=== PATIENT | male | born 1975 | race Caucasian/White ===

== ENCOUNTER 2018-11-13 00:08 | Emergency (ER) | payer MEDICARE, OTHER ==
[~2018-11-13] VITALS: Ht 182.9 cm; Wt 89.8 kg
--- NOTE | 2018-11-13 00:17 | ED General ---
General Chief Complaint: Neurological Problems Stated Complaint: LT SIDE WEAKNESS; NECK PAIN History of Present Illness Date Seen by Provider: Nov 13, 2018 Time Seen by Provider: 00:17 Initial Comments Patient is a 43-year-old male with history of hypertension who presents to the emergency department today complaining of left-sided facial droop and left eye irritation. He had onset of symptoms around 1:00 this afternoon. He did not have any other focal neurologic complaints. No weakness. He does complain of diffuse left-sided headache which is sometimes occipital. No nausea or vomiting. No chest pain or shortness of breath. No numbness or tingling. No loss of bowel or bladder. No difficulty speaking or with word finding. Allergies and Home Medications Allergies Coded Allergies: No Known Drug Allergies (Unverified , 11/13/18) Home Medications Azithromycin 250 Mg Tablet, 250 MG PO DAILY Prescribed by: SHANE PLASCENCIA on 11/13/1848 Dextran 70/Hypromellose/Pf 1 Each Droperette, 1 EACH OS UD Use 1 drop in the left eye several times hourly as needed to keep eye lubricated. Dispense one bottle with 1 refill. Prescribed by: SHANE PLASCENCIA on 11/13/18 010 Mineral Oil/Petrolatum,White 3.5 Gm Oint...g., 3.[address] a small ribbon of ointment in the left eye before bed each night Prescribed by: SHANE PLASCENCIA on 11/13/1848 Prednisone 20 Mg Tab, 60 MG PO DAILY Prescribed by: SHANE PLASCENCIA on 11/13/1848 Valacyclovir HCl 1,000 Mg Tablet, 1,000 MG PO TID Prescribed by: SHANE PLASCENCIA on 11/13/1848 Patient Home Medication List Home Medication List Reviewed: Yes Review of Systems Review of Systems Constitutional: no symptoms reported EENTM: see HPI, eye pain, tearing Respiratory: no symptoms reported Cardiovascular: no symptoms reported Musculoskeletal: no symptoms reported Skin: no symptoms reported Hematologic/Lymphatic: No Symptoms Reported Physical Exam Vital Signs Vital Signs - First Documented 11/13/18 00:18 Temp 97.5 Pulse 78 Resp 18 B/P (MAP) 160/106 (124) Pulse Ox 98 O2 Delivery Room Air Capillary Refill : Height, Weight, BMI Height: '" Weight: lbs. oz. kg; BMI Method: General Appearance: No Apparent Distress, WD/WN Eyes: Bilateral Eye Normal Inspection, Bilateral Eye PERRL, Bilateral Eye EOMI HEENT: PERRL/EOMI, Other (TMs are dull bilaterally. The left is red. The right is dark [place] val[place] with effusion present. Left conjunctiva is mildly injected and eyes watering) Neck: Full Range of Motion, Supple Respiratory: Lungs Clear, Normal Breath Sounds Cardiovascular: Regular Rate, Rhythm, No Edema Gastrointestinal: Non Tender, Soft Extremity: Normal Capillary Refill, Normal Inspection, Normal Range of Motion Neurologic/Psychiatric: Alert, Oriented x3, No Motor/Sensory Deficits, Normal Mood/Affect, Facial Droop, Other (isolated seventh cranial nerve palsy is present on the left. The forehead is involved. Patient cannot fully close left eyelid. Coronary left mouth is drooping.) Progress/Results/Core Measures Suspected Sepsis SIRS Temperature: Pulse: Respiratory Rate: Blood Pressure / Mean: Results/Orders My Orders Orders - SHANE PLASCENCIA DO Ct Head Wo (11/13/18 00:18) Prednisone Tablet (Deltasone Tablet) (11/13/18 00:45) Azithromycin Tablet (Zithromax Tablet) (11/13/18 01:00) Medications Given in ED Current Medications Medications Dose Ordered Sig/Giovani Route Start Time Stop Time Status Last Admin Dose Admin Azithromycin 500 mg ONCE ONCE PO 11/13/18 01:00 11/13/18 01:01 DC 11/13/18 00:55 500 MG Prednisone 50 mg ONCE ONCE PO 11/13/18 00:45 11/13/18 00:46 DC 11/13/18 00:58 50 MG Vital Signs/I&O 11/13/18 00:18 Temp 97.5 Pulse 78 Resp 18 B/P (MAP) 160/106 (124) Pulse Ox 98 O2 Delivery Room Air Capillary Refill : Progress Note : Time: 00:57 Progress Note Patient is examined. He has physical exam consistent with Inman's palsy. No other findings on complete neurologic examination. CT head is ordered. We will begin prednisone this evening in the ER. Patient also endorses that he was recently struggling with an upper respiratory and sinus infection which he perceives to have been improving over the last 24 hours. On physical exam, his ear, particularly on the right, appear to have effusion and possibly purulent. He is started on azithromycin in the ER as well and will be given a prescription for the same to take at home. 01:10: CT scan has returned and is negative. She was reexamined. He continues to have no physical exam findings concerning for a central lesion. Rather, his exam reveals peripheral lesion isolated to cranial nerve VII. In the ER, he was started on azithromycin for treatment of sinus infection. Unfortunately artificial tears or acyclovir or valacyclovir is not available so the patient is given a prescription for these. He is discharged to home. He is strongly encouraged to keep his eye taped closed and to use eye lubricants frequently. He will fill his medication prescriptions at the [place] pharmacy when available. Follow-up with primary care doctor. Departure Impression Primary Impression: Inman's palsy Disposition: HOME, SELF-CARE Condition: Improved Departure-Patient Inst. Referrals: NO,LOCAL PHYSICIAN (PCP/Family) Primary Care Physician Scripts Dextran 70/Hypromellose/Pf (Artificial Tears Drops) 1 Each Droperette 1 EACH OS UD, #1 DROP 1 Refill Use 1 drop in the left eye several times hourly as needed to keep eye lubricated. Dispense one bottle with 1 refill. Prov: SHANE PLASCENCIA DO 11/13/18 Mineral Oil/Petrolatum,White (Refresh Lacri-Lube Ointment) 3.5 Gm Oint...g. 3.5 GM OS UD, #[address] a small ribbon of ointment in the left eye before bed each night Prov: SHANE PLASCENCIA DO 11/13/18 Azithromycin (Azithromycin) 250 Mg Tablet 250 MG PO DAILY for 4 Days, #4 TAB Prov: SHANE PLASCENCIA DO 11/13/18 Prednisone (Prednisone) 20 Mg Tab 60 MG PO DAILY, #5 TAB 0 Refills Prov: SHANE PLASCENCIA DO 11/13/18 Valacyclovir HCl (Valtrex) 1,000 Mg Tablet 1000 MG PO TID for 7 Days, #21 TAB Prov: SHANE PLASCENCIA DO 11/13/18 SHANE PLASCENCIA DO Nov 13, 2018 00:17
[2018-11-13] MEDS ORDERED: VALACYCLOVIR 500 MG TAB (VALTREX) PO SCH (00:45)
[2018-11-13] MEDS ORDERED: predniSONE 20 MG TAB PO ONE (00:45)
[2018-11-13] MEDS ORDERED: ARTIFICAL TEARS 0.4 ML UNIT DOSE (REFRESH PLUS) OS PRN (00:45)
[2018-11-13] MEDS ORDERED: VALA10004 PO (00:49)
[2018-11-13] MEDS ORDERED: AZIT250T12 PO (00:49)
[2018-11-13] MEDS ORDERED: MINE3.5O2 OS (00:49)
[2018-11-13] MEDS ORDERED: PRD20T PO (00:49)
[2018-11-13] MEDS ORDERED: AZITHROMYCIN 250 MG TAB (ZITHROMAX) PO ONE (01:00)
[2018-11-13] MEDS ORDERED: DEXT1DRO8 OS (01:02)
[2018-11-13 01:10] VITALS: BP 145/91
--- NOTE | 2018-11-13 06:33 | Diagnostic Imaging Report ---
PROCEDURE: CT head without contrast. TECHNIQUE: Multiple contiguous axial images were obtained through the brain without the use of intravenous contrast. Auto Exposure Controls were utilized during the CT exam to meet ALARA standards for radiation dose reduction. INDICATION: Left sided facial drooping and left-sided neck pain. No priors. There is no intracranial hemorrhage, hydrocephalus, edema, mass or mass effect. The basilar cisterns are patent. No sulcal effacement. No loss of the del valle-white matter differentiations. No intracranial asymmetry found. Orbits, sinuses, and calvarium unremarkable. IMPRESSION: Normal CT head. Dictated by: Dictated on workstation # [id number]
== END 2018-11-13 01:10 | disposition home or self-care (01) ==
LOC: EDUNIT# 00:08 → ER FS 00:09
DX: G51.0 Bell's palsy (principal); I10 Essential (primary) hypertension
CPT/HCPCS: 70450

== ENCOUNTER 2018-11-15 14:15 | Emergency (ER) | payer OTHER ==
[~2018-11-15] VITALS: Ht 182.9 cm; Wt 89.8 kg
[~2018-11-15 14:15] MED LIST: AZIT250T12 PO; DEXT1DRO8 OS; MINE3.5O2 OS; PRD20T PO; VALA10004 PO
[2018-11-15 14:45] VITALS: BP 141/77
--- NOTE | 2018-11-15 14:45 | NUR ---
1420: Patient arrived to ED stating he has had left sided facial droop for 4 days, states he was seen in the ED here and diagnosed with Inman's Palsy. He states the pain in his head and neck have worsened, his facial droop has worsened, and he has new symptoms of left leg weakness, left foot numbness/tingling, and blurred/double vision that started at 1100 this morning. Patient agitated and terse with staff, asking why blood and urine tests are necessary to diagnose his condition and treat him. 1425: Dr. Schulz in room to examine patient. 1445: Dr. Schulz explained treatment/diagnostic options to patient, patient pulled off cardiac leads, pulse oximetry, and blood pressure cuff and walked out of the ED against medical advice.
--- NOTE | 2018-11-15 15:03 | ED Headache ---
General Chief Complaint: Head/Cervical Problems Stated Complaint: FACIAL DROOP; NECK PAIN Source: patient History of Present Illness Date Seen by Provider: Nov 15, 2018 Time Seen by Provider: 14:30 Initial Comments Patient is a 43-year-old male presents with multiple medical complaints. Patient was evaluated in this emergency Department week ago and diagnosed with left facial droop characteristic of bells palsy. Patient states he was unable to fill any of his medications due to lack of finances. Reports blurred vision, temporal headache radiating to left shoulder worse with palpation and movement. Patient a lso reports chronic back pain and left lower extremity weakness and paresthesias below the level of the knee which are new today. Patient attempted to see his primary care physician at the [place] and was scheduled for an appointment in one week. He states he took Tylenol prior to the arrival for the headache and neck pain but nothing has worked. Denies urinary and bowel incontinence. Denies acute worsening back pain. Headache is left retro-orbital is described as sharp. It is not worse headache in the patient's life. Timing/Duration: 4-6 hours Severity/Quality: moderate Location: frontal Prior Headaches/Recent Trauma: occasional headaches Modifying Factors: improves with other Associated Symptoms: weakness Allergies and Home Medications Allergies Coded Allergies: No Known Drug Allergies (Unverified , 11/13/18) Home Medications Azithromycin 250 Mg Tablet, 250 MG PO DAILY Prescribed by: SHANE PLASCENCIA on 11/13/1848 Dextran 70/Hypromellose/Pf 1 Each Droperette, 1 EACH OS UD Use 1 drop in the left eye several times hourly as needed to keep eye lubricated. Dispense one bottle with 1 refill. Prescribed by: SHANE PLASCENCIA on 11/13/18101 Mineral Oil/Petrolatum,White 3.5 Gm Oint...g., 3.[address] a small ribbon of ointment in the left eye before bed each night Prescribed by: SHANE PLASCENCIA on 11/13/1848 Prednisone 20 Mg Tab, 60 MG PO DAILY Prescribed by: SHANE PLASCENCIA on 11/13/1848 Valacyclovir HCl 1,000 Mg Tablet, 1,000 MG PO TID Prescribed by: SHANE PLASCENCIA on 11/13/1848 Patient Home Medication List Home Medication List Reviewed: Yes Review of Systems Review of Systems Constitutional: see HPI Eyes: See HPI Ears, Nose, Mouth, Throat: see HPI Respiratory: see HPI Cardiovascular: see HPI Gastrointestinal: see HPI Genitourinary: see HPI Musculoskeletal: see HPI Skin: see HPI Psychiatric/Neurological: See HPI Past Astutyu-Dktxhj-Swvtga Hx Patient Social History Former Smoker, Quit: August 10, 2018 2nd Hand Smoke Exposure: No Recent Hopitalizations: No Past Medical History Surgeries: No Respiratory: No Cardiac: Yes High Cholesterol, Hypertension Neurological: No Genitourinary: No Gastrointestinal: No Musculoskeletal: No Endocrine: No HEENT: No Cancer: No Psychosocial: No Integumentary: No Blood Disorders: No Physical Exam Vital Signs Capillary Refill : Height, Weight, BMI Height: 6'0" Weight: 198lbs. oz. 89.614120dr; BMI Method:Stated General Appearance: no apparent distress HEENT: PERRL/EOMI, normal ENT inspection, pharynx normal, other (left facial droop with loss of blink reflex, forehead involvement without sparing) Cardiovascular: normal peripheral pulses, regular rate, rhythm Respiratory: chest non-tender, lungs clear Gastrointestinal: normal bowel sounds, soft Back: normal inspection, no CVA tenderness Extremities: non-tender Psychiatric: oriented x 3 Motor/Sensory: no sensory deficit, negative Babinski's sign, weak motor strength LLE Reflexes: 3+ Knee (R), 3+ Knee (L), 3+ Ankle (R), 3+ Ankle (L) Skin: normal color Departure Communication (Admissions) Patient exam consistent with Inman's palsy, left-sided headache which is new with cervical radiculopathy and left lower extremity paresthesia motor weakness. Patient has inconsistent neuro exam. Patient has decreased plantar and dorsiflexion is able to walk with out difficulty ataxia or foot drop. Discussed with patient the need for additional imaging including CT and/or MRI. Patient declines evaluation here states he just wants to have his neck treated. Patient for tramadol and Flexeril for treatment of neck pain. States he doesn't want that and that he could just get that from his primary care physician. Patient left abruptly without further morning. Ambulates with a steady gait on departure. Impression Primary Impression: Neck pain Additional Impressions: Inman's palsy Headache Left leg weakness Disposition: 01 HOME, SELF-CARE Condition: Stable Departure-Patient Inst. Referrals: NO,LOCAL PHYSICIAN (PCP/Family) Primary Care Physician OSCAR DEL VALLE DO Nov 15, 2018 15:03
== END 2018-11-15 14:45 | disposition left against medical advice (07) ==
LOC: EDUNIT# 14:15 → ER FS 14:17
DX: G51.0 Bell's palsy (principal); M54.2 Cervicalgia; R51 Headache; R29.898 Other symptoms and signs involving the musculoskeletal system; I10 Essential (primary) hypertension; E78.00 Pure hypercholesterolemia, unspecified; Z91.120 Patient's intentional underdosing of medication regimen due to financial hardship; Z87.891 Personal history of nicotine dependence
CPT/HCPCS: 99282

== ENCOUNTER 2019-09-21 20:29 | Emergency (ER) | payer OTHER ==
[~2019-09-21] VITALS: Ht 182.8 cm; Wt 83.6 kg
--- OUTSIDE RECORDS SUMMARY | 2019-09-21 20:35 | XMS REPORT | Continuity of Care Document ---
Author Organization Unknown Address Unknown Phone Unavailable Allergies Active Description Code Type Severity Reaction Onset Reported/Identified Relationship to Patient Clinical Status Yes No Known Drug Allergies [id number] Drug Allergy Unknown N/A 11/13/2018 Medications There is no data. 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 Results There is no data. Encounters ACCT No. Visit Date/Time Discharge Status Pt. Type Provider Facility Loc./Unit Complaint [id number] 12/02/2018 12:13:00 019 23:59:59 CLS Preadmit JOYCELYN BLEDSOE [facility] RAD NECK PAIN [id number] 11/15/2018 14:17:00 019 14:45:00 DIS Outpatient OSCAR DEL VALLE DO [facility] ER FS FACIAL DROOP; NECK PAIN [id number] 11/13/2018 00:09:00 019 01:10:00 DIS Outpatient SHANE PLASCENCIA DO [facility] ER FS LT SIDE WEAKNESS; NECK PAIN
[2019-09-21] MEDS ORDERED: HYDR-4132 PO (20:43)
[2019-09-21] MEDS ORDERED: CLIN150C17 PO (20:43)
[2019-09-21] MEDS ORDERED: CHLO473M4 MM (20:43)
[2019-09-21] MEDS ORDERED: AUGMENTIN 875 MG TAB (AMOXICILLIN/CLAVULANATE) PO STA (20:44)
[2019-09-21] MEDS ORDERED: HYDROcodone/APAP 5 MG/325 MG (LORTAB) TAB PO ONE (20:45)
--- NOTE | 2019-09-21 20:57 | ED General ---
General Chief Complaint: Dental Problems/Pain Stated Complaint: JAW SWELLING Nursing Triage Note: CHIN SWOLLEN AND IT STARTED LAST NIGHT. PT. HAS DENTAL PROBLEMS. Nursing Sepsis Screen: No Definite Risk Source of Information: Patient History of Present Illness Date Seen by Provider: Sep 21, 2019 Time Seen by Provider: 22:30 Initial Comments Patient is a 44-year-old male with history of widespread dental caries who presents with mandible swelling. Patient reports swelling of anterior chin starting yesterday. No dysphonia, dysphagia, trismus. No fever chills, sweats difficulty swallowing. No other symptoms or complaints. No medications or therapies taken prior to ED arrival. Timing/Duration: 12-24 Hours Severity: Mild Associated Systoms: Denies Symptoms Allergies and Home Medications Allergies Coded Allergies: No Known Drug Allergies (Unverified , 11/13/18) Home Medications Azithromycin 250 Mg Tablet, 250 MG PO DAILY Prescribed by: SHANE PLASCENCIA on 11/13/1848 Chlorhexidine Gluconate 473 Ml Mouthwash, 473 ML MM Q8H Prescribed by: OSCAR DEL VALLE on 09/21/192042 Clindamycin HCl 150 Mg Capsule, 300 MG PO QID Prescribed by: OSCAR DEL VALLE on 09/21/192042 Dextran 70/Hypromellose/Pf 1 Each Droperette, 1 EACH OS UD Use 1 drop in the left eye several times hourly as needed to keep eye lubricated. Dispense one bottle with 1 refill. Prescribed by: SHANE PLASCENCIA on 11/13/18101 Hydrocodone/Acetaminophen 1 Each Tablet, 1 EACH PO Q6H Prescribed by: OSCAR DEL VALLE on 09/21/192042 Mineral Oil/Petrolatum,White 3.5 Gm Oint...g., 3.[address] a small ribbon of ointment in the left eye before bed each night Prescribed by: SHANE PLASCENCIA on 11/13/1848 Prednisone 20 Mg Tab, 60 MG PO DAILY Prescribed by: SHANE PLASCENCIA on 11/13/1848 Valacyclovir HCl 1,000 Mg Tablet, 1,000 MG PO TID Prescribed by: SHANE PLASCENCIA on 11/13/1848 Patient Home Medication List Home Medication List Reviewed: Yes Review of Systems Review of Systems Constitutional: see HPI EENTM: see HPI Past Qdanfhm-Xpnszy-Yvbcns Hx Patient Social History Type Used: Cigarettes Former Smoker, Quit: August 10, 2018 2nd Hand Smoke Exposure: No Recent Foreign Travel: No Contact w/Someone Who Travel: No Recent Infectious Disease Expo: No Recent Hopitalizations: No Physical Abuse: No Sexual Abuse: No Mistreated: No Fear: No Seasonal Allergies Seasonal Allergies: No Past Medical History Surgeries: No Respiratory: No Cardiac: Yes High Cholesterol, Hypertension Neurological: No Genitourinary: No Gastrointestinal: No Musculoskeletal: Yes (T7-T10 fracture) Endocrine: No HEENT: No Cancer: No Psychosocial: No Integumentary: No Blood Disorders: No Physical Exam Vital Signs Vital Signs - First Documented 09/21/19 20:34 Temp 36.5 Pulse 89 Resp 18 B/P (MAP) 158/100 (119) Pulse Ox 98 O2 Delivery Room Air Capillary Refill : Less Than 3 Seconds Height, Weight, BMI Height: 6'0" Weight: 198lbs. oz. 89.231567cu; 25.00 BMI Method:Stated General Appearance: No Apparent Distress Eyes: Bilateral Eye Normal Inspection, Bilateral Eye PERRL HEENT: PERRL/EOMI, Pharynx Normal, Other (widespread dental caries with gingival swelling, and erosions. anterior chin swelling without erythema or fluctuance.) Neck: Full Range of Motion, Normal Inspection, Supple Respiratory: Lungs Clear Focused Exam Sepsis Stage: Ruled Out Progress/Results/Core Measures Suspected Sepsis Recent Fever Within 48 Hours: No Infection Criteria Present: None New/Unexplained Altered Menta: No Sepsis Screen: No Definite Risk SIRS Temperature: Pulse: 89 Respiratory Rate: 18 Blood Pressure 158 /100 Mean: 119 Results/Orders My Orders Orders - OSCAR DEL VALLE DO Amoxicillin/Clavulanate Tablet (Augmenti (09/21/19 20:44) Hydrocodone/Apap 5/325 Tablet (Lortab 5 (09/21/19 20:45) Vital Signs/I&O 09/21/19 20:34 Temp 36.5 Pulse 89 Resp 18 B/P (MAP) 158/100 (119) Pulse Ox 98 O2 Delivery Room Air Capillary Refill : Less Than 3 Seconds Blood Pressure Mean: 119 Departure Communication (Admissions) Early facial soft tissue abscess with caries and gingivitis. Abx given. Recommend are for close PCP follow up. Impression Primary Impression: Dental caries Disposition: 01 HOME, SELF-CARE Condition: Stable/Unchanged Departure-Patient Inst. Referrals: NO,LOCAL PHYSICIAN (PCP) Primary Care Physician Patient Instructions: Gingivitis (DC), Dental Pain (DC) Add. Discharge Instructions: Please fill antibiotics and take next dose tomorrow morning. Take ibuprofen for pain and hydrocodone as needed for additional relief. Contact your dentist or dental clinic tomorrow for follow up HORTENCIA. All discharge instructions reviewed with patient and/or family. Voiced understanding. Scripts Chlorhexidine Gluconate (Peridex) 473 Ml Mouthwash 473 ML MM Q8H for 10 Days, #120 ML Prov: OSCAR DEL VALLE DO 09/21/19 Hydrocodone/Acetaminophen (Hydrocodone-Acetamin 5-300 mg) 1 Each Tablet 1 EACH PO Q6H, #10 TAB Prov: OSCAR DEL VALLE DO 09/21/19 Clindamycin HCl (Clindamycin HCl) 150 Mg Capsule 300 MG PO QID, #80 CAP Prov: OSCAR DEL VALLE DO 09/21/19 OSCAR DEL VALLE DO Sep 21, 2019 20:56
[2019-09-21 21:03] VITALS: BP 158/100
== END 2019-09-21 21:09 | disposition home or self-care (01) ==
LOC: EDUNIT# 20:29 → ER FS 20:30
DX: K02.9 Dental caries, unspecified (principal); I10 Essential (primary) hypertension; Z79.52 Long term (current) use of systemic steroids; Z87.891 Personal history of nicotine dependence
CPT/HCPCS: 99283

== ENCOUNTER 2019-09-23 22:06 | Emergency (ER) | payer OTHER ==
[~2019-09-23] VITALS: Ht 182.8 cm; Wt 197.0 kg
[~2019-09-23 22:06] MED LIST changes: +CHLO473M4 MM; +CLIN150C17 PO; +HYDR-4132 PO
--- NOTE | 2019-09-23 22:23 | ED Integumentary General ---
General Chief Complaint: Skin/Wound Problems Stated Complaint: DENTAL PAIN Source: patient Exam Limitations: no limitations History of Present Illness Date Seen by Provider: Sep 23, 2019 Time Seen by Provider: 22:15 Initial Comments The patient is a 44-year-old male presents for evaluation of a chin infection which is been present for 2-3 days. He was seen in this emergency department 2 days ago and was prescribed Augmentin and [place]. He states that the swelling is getting worse and is getting more painful. He states that he is already out of his pain medication. He has no other complaints at this time. Timing/Duration: other (3 days ago) Severity: moderate Location: face Possible Cause: no cause identified Associated Symptoms: denies symptoms Allergies and Home Medications Allergies Coded Allergies: No Known Drug Allergies (Unverified , 11/13/18) Home Medications Azithromycin 250 Mg Tablet, 250 MG PO DAILY Prescribed by: SHANE PLASCENCIA on 11/13/1848 Chlorhexidine Gluconate 473 Ml Mouthwash, 473 ML MM Q8H Prescribed by: OSCAR DEL VALLE on 09/21/192042 Clindamycin HCl 150 Mg Capsule, 300 MG PO QID Prescribed by: OSCAR DEL VALLE on 09/21/192042 Dextran 70/Hypromellose/Pf 1 Each Droperette, 1 EACH OS UD Use 1 drop in the left eye several times hourly as needed to keep eye lubricated. Dispense one bottle with 1 refill. Prescribed by: SHANE PLASCENCIA on 11/13/18101 Hydrocodone/Acetaminophen 1 Each Tablet, 1 EACH PO Q6H Prescribed by: OSCAR DEL VALLE on 09/21/192042 Mineral Oil/Petrolatum,White 3.5 Gm Oint...g., 3.[address] a small ribbon of ointment in the left eye before bed each night Prescribed by: SHANE PLASCENCIA on 11/13/1848 Prednisone 20 Mg Tab, 60 MG PO DAILY Prescribed by: SHANE PLASCENCIA on 11/13/1848 Valacyclovir HCl 1,000 Mg Tablet, 1,000 MG PO TID Prescribed by: SHANE PLASCENCIA on 11/13/1848 Patient Home Medication List Home Medication List Reviewed: Yes Review of Systems Review of Systems Constitutional: no symptoms reported EENTM: no symptoms reported Respiratory: no symptoms reported Cardiovascular: no symptoms reported Gastrointestinal: no symptoms reported Genitourinary: no symptoms reported Musculoskeletal: no symptoms reported Skin: no symptoms reported Psychiatric/Neurological: No Symptoms Reported Endocrine: No Symptoms Reported Hematologic/Lymphatic: No Symptoms Reported All Other Systems Reviewed Negative Unless Noted: Yes Past Nvyzyhb-Zyixqv-Qfwglh Hx Past Med/Social Hx: Reviewed Nursing Past Med/Soc Hx Patient Social History Type Used: Cigarettes Former Smoker, Quit: August 10, 2018 2nd Hand Smoke Exposure: No Recent Foreign Travel: No Contact w/Someone Who Travel: No Recent Hopitalizations: No Physical Abuse: No Sexual Abuse: No Mistreated: No Fear: No Seasonal Allergies Seasonal Allergies: No Past Medical History Surgeries: No Respiratory: No Cardiac: Yes High Cholesterol, Hypertension Neurological: No Genitourinary: No Gastrointestinal: No Musculoskeletal: Yes (T7-T10 fracture) Endocrine: No HEENT: No Cancer: No Psychosocial: No Integumentary: No Blood Disorders: No Physical Exam Vital Signs Capillary Refill : General Appearance: WD/WN, no apparent distress HEENT: PERRL/EOMI, pharynx normal, other (swelling without fluctuance to the chin consistent with cellulitis) Neck: non-tender, supple, normal inspection Cardiovascular: regular rate, rhythm, no edema Respiratory: lungs clear, normal breath sounds, no accessory muscle use Extremities: normal range of motion, normal inspection, no calf tenderness, other (some fingers of left hand with partial limitations) Neurologic/Psychiatric: no motor/sensory deficits, alert, normal mood/affect, oriented x 3 Skin: warm/dry, other (chin with erythema consistent with cellulitis) Progress/Results/Core Measures Progress Progress Note : Progress Note @2220 - The patient had previously been prescribed Augmentin and will add Bactrim to provide additional coverage. The patient will also receive additional pain medication. Advised the patient to follow-up with his PCP in the next 1-2 days and to return to the Emergency Department immediately for new or worsening symptoms. The patient expresses verbal understanding and agreement with the plan and is stable for discharge. Departure Impression Primary Impression: Cellulitis of chin Disposition: 01 HOME, SELF-CARE Condition: Stable Departure-Patient Inst. Decision time for Depature: 22:22 Referrals: NO,LOCAL PHYSICIAN (PCP) Primary Care Physician [facility] Patient Instructions: Cellulitis (Skin Infection), Child (DC), Folliculitis (DC) Add. Discharge Instructions: Take the prescribed medication as directed. Return to the emergency Department immediately for new or worsening symptoms. Follow-up with your doctor the next 1-2 days. Scripts Hydrocodone Bit/Acetaminophen (HYDROcodone/APAP 7.5/325 TAB) 1 Ea Tablet 1 EA PO Q6H PRN for PAIN-SEVERE (8-10) for 5 Days, #15 TAB Prov: RADHA CEBALLOS DO 09/23/19 Cephalexin (Keflex) 500 Mg Capsule 500 MG PO Q6H for 10 Days, #40 CAP Prov: RADHA CEBALLOS DO 09/23/19 Sulfamethoxazole/Trimethoprim (Bactrim Ds Tablet) 1 Each Tablet 1 EACH PO BID for 10 Days, #20 TAB Prov: RADHA CEBALLOS DO 09/23/19 RADHA CEBALLOS DO Sep 23, 2019 22:22
[2019-09-23] MEDS ORDERED: CEPH-507 PO (22:25)
[2019-09-23] MEDS ORDERED: HYDR-34 PO (22:25)
[2019-09-23] MEDS ORDERED: SULF1TAB35 PO (22:25)
[2019-09-23] MEDS ORDERED: HYDROcodone/APAP 5 MG/325 MG (LORTAB) TAB PO ONE (22:30)
[2019-09-23] MEDS ORDERED: BACITRACIN OINTMENT 28 GM TUBE ONE (22:30)
[2019-09-23 22:40] VITALS: BP 158/118
--- OUTSIDE RECORDS SUMMARY | 2019-09-24 01:56 | XMS REPORT | Continuity of Care Document ---
Author Organization Unknown Address Unknown Phone Unavailable Allergies Active Description Code Type Severity Reaction Onset Reported/Identified Relationship to Patient Clinical Status Yes No Known Drug Allergies [id number] Drug Allergy Unknown N/A 11/13/2018 Medications There is no data. Problems Date Dx Coded Attending Type Code Diagnosis Diagnosed By 11/13/2018 SHANE PLASCENCIA DO Ot G51 .0 DE [place] 11/13/2018 SHANE PLASCENCIA DO Ot I10 ESSENTIAL (PRIMARY) HYPERTENSION 11/13/2018 SHANE PLASCENCIA DO Ot R29.810 FACIAL WEAKNESS 11/15/2018 PLASCENCIASHANE MINA DO Ot G51 .0 DE [place] 11/15/2018 SHANE PLASCENCIA DO Ot I10 ESSENTIAL (PRIMARY) HYPERTENSION 11/15/2018 PLASCENCIA SHANE VITAL Ot R29.810 FACIAL WEAKNESS 11/15/2018 [facility] [place] DO OSCAR Ot E78.00 PURE HYPERCHOLESTEROLEMIA, UNSPECIFIED 11/15/2018 [facility].0 DE [place] 11/15/2018 [place] OSCAR Ot I10 ESSENTIAL (PRIMARY) HYPERTENSION 11/15/2018 [place] OSCAR VITAL Ot M54.2 CERVICALGIA 11/15/2018 [facility] OSCAR Ot R29.810 FACIAL WEAKNESS 11/15/2018 [place] DO OSCAR Ot R29.898 OTH SYMPTOMS AND SIGNS INVOLVING THE MUS 11/15/2018 [facility], OSCAR Ot R51 HEADACHE 11/15/2018 [facility], OSCAR Ot Z87.891 PERSONAL HISTORY OF NICOTINE DEPENDENCE 11/15/2018 ELIGIO VITAL, OSCAR Ot Z91.120 PT INTENTL UNDRDOSE OF MEDS REGIMEN DUE 11/17/2018 OSCAR DEL VALLE DO Ot E78.00 PURE HYPERCHOLESTEROLEMIA, UNSPECIFIED 11/17/2018 [place] , OSCAR Ot G51.0 DE [place] 11/17/2018 ELIGIO , OSCAR Ot I10 ESSENTIAL (PRIMARY) HYPERTENSION 11/17/2018 [facility] OSCAR Ot M54.2 CERVICALGIA 11/17/2018 [place] DO, OSCAR Ot R29.810 FACIAL WEAKNESS 11/17/2018 OSCAR DEL VALLE DO Ot R29.898 OTH SYMPTOMS AND SIGNS INVOLVING THE MUS 11/17/2018 OSCAR DEL VALLE DO Ot R51 HEADACHE 11/17/2018 OSCAR DEL VALLE DO Ot Z87.891 PERSONAL HISTORY OF NICOTINE DEPENDENCE 11/17/2018 OSCAR DEL VALLE DO Ot Z91.120 PT INTENTL UNDRDOSE OF MEDS REGIMEN DUE Procedures There is no data. Results There is no data. Encounters ACCT No. Visit Date/Time Discharge Status Pt. Type Provider Facility Loc./Unit Complaint [id number] 09/23/2019 22:09:00 020 22:40:00 DIS Emergency TUCKER GARCIA DO [facility] ER FS DENTAL PAIN [id number] 09/21/2019 20:30:00 020 21:09:00 DIS Emergency OSCAR DEL VALLE DO [facility] ER FS JAW SWELLING [id number] 12/02/2018 12:13:00 019 23:59:59 CLS Preadmit JOYCELYN BLEDSOE [facility] RAD NECK PAIN [id number] 11/15/2018 14:17:00 019 14:45:00 DIS Emergency OSCAR DEL VALLE DO [facility] ER FS FACIAL DROOP; NECK PAIN [id number] 11/13/2018 00:09:00 019 01:10:00 DIS Emergency SHANE PLASCENCIA DO [facility] ER FS LT SIDE WEAKNESS; NECK PAIN
[2019-09-24] MEDS ORDERED: BACITRACIN OINTMENT 28 GM TUBE TOP SCH (09:00)
== END 2019-09-23 22:40 | disposition home or self-care (01) ==
LOC: EDUNIT# 22:06 → ER FS 22:09
DX: L03.211 Cellulitis of face (principal); Z79.52 Long term (current) use of systemic steroids; Z87.891 Personal history of nicotine dependence
CPT/HCPCS: 99283

== ENCOUNTER 2021-06-25 10:46 | Emergency (ER) | payer OTHER ==
[~2021-06-25] VITALS: Ht 182.8 cm; Wt 82.0 kg
[~2021-06-25 10:46] MED LIST changes: +CEPH-507 PO; -CLIN150C17 PO; +CLIN150C20 PO; +HYDR-34 PO; +SULF1TAB38 PO
[2021-06-25] MEDS ORDERED: CLINDAMYCIN 600 MG/50 ML IVPB 50 ML IV STA (11:07)
--- NOTE | 2021-06-25 11:29 | ED EENT ---
History of Present Illness General Chief Complaint: Dental Problems/Pain Stated Complaint: SOB History of Present Illness Date Seen by Provider: Jun 25, 2021 Time Seen by Provider: 10:59 Initial Comments 45-year-old male is here with complaints of extensive dental caries which has led to left-sided facial swelling and pain. Symptoms began a few days ago and has slowly been worsening, and when patient woke up today morning the swelling had spread to the entire left side of his face and into his eyelids as well as the left side of his forehead. Patient states that he is also starting to feel like his throat is starting to swell as well. He is concerned that he may be developing some shortness of breath. Patient is able to speak in complete and clear sentences without any evidence of respiratory distress during H&P. Denies fever, chills, nausea or vomiting, abdominal pain, URI symptoms. Patient states that he had similar symptoms about 5 to 6 years back, again due to dental infection, and was in the ICU and was intubated in [facility]. Patient is a smoker. Patient denies any allergies. Allergies and Home Medications Allergies Coded Allergies: No Known Drug Allergies (Unverified , 11/13/18) Patient Home Medication List Home Medication List Reviewed: Yes Azithromycin (Azithromycin) 250 Mg Tablet, 250 MG PO DAILY Prescribed by: SHANE PLASCENCIA on 11/13/18 004 Cephalexin (Keflex) 500 Mg Capsule, 500 MG PO Q6H Prescribed by: RADHA CEBALLOS on 09/23/192224 Chlorhexidine Gluconate (Peridex) 473 Ml Mouthwash, 473 ML MM Q8H Prescribed by: OSCAR DEL VALLE on 09/21/192042 Clindamycin HCl (Clindamycin HCl) 150 Mg Capsule, 300 MG PO QID Prescribed by: OSCAR DEL VALLE on 09/21/192042 Dextran 70/Hypromellose/Pf (Artificial Tears Drops) 1 Each Droperette, 1 EACH OS UD Prescribed by: SHANE PLASCENCIA on 11/13/18 010 Hydrocodone Bit/Acetaminophen (HYDROcodone/APAP 7.5/325 TAB) 1 Ea Tablet, 1 EA PO Q6H PRN for PAIN-SEVERE (8-10) Prescribed by: RADHA CEBALLOS on 09/23/19 222 Hydrocodone/Acetaminophen (Hydrocodone-Acetamin 5-300 mg) 1 Each Tablet, 1 EACH PO Q6H Prescribed by: OSCAR DEL VALLE on 09/21/192042 Mineral Oil/Petrolatum,White (Refresh Lacri-Lube Ointment) 3.5 Gm Oint...g., 3.5 GM OS UD Prescribed by: SHANE PLASCENCIA on 11/13/1848 Prednisone (Prednisone) 20 Mg Tab, 60 MG PO DAILY Prescribed by: SHANE PLASCENCIA on 11/13/1848 Sulfamethoxazole/Trimethoprim (Bactrim Ds Tablet) 1 Each Tablet, 1 EACH PO BID Prescribed by: RADHA CEBALLOS on 09/23/192224 Valacyclovir HCl (Valtrex) 1,000 Mg Tablet, 1,000 MG PO TID Prescribed by: SHANE PLASCENCIA on 11/13/1848 Review of Systems Review of Systems Constitutional: other (facial swelling) Eyes: Other (eyelid swelling) Ears: No Symptoms Reported Nose: no symptoms reported Mouth: pain, swelling Throat: swelling Respiratory: short of breath Cardiovascular: no symptoms reported Gastrointestinal: no symptoms reported Musculoskeletal: no symptoms reported Skin: no symptoms reported Neurological: No Symptoms Reported Hematologic/Lymphatic: No Symptoms Reported Immunological/Allergic: no symptoms reported Past Maomxdp-Ipvsrk-Wbzbbv Hx Patient Social History Tobacco Use?: Yes Tobacco type used: Cigarettes Smoking Status: Current Everyday Smoker Use of E-Cig and/or Vaping dev: No Substance use?: No Alcohol Use?: No Pt feels they are or have been: No Immunizations Up To Date Influenza Vaccine Up-to-Date: No; Not Current Seasonal Allergies Seasonal Allergies: No Past Medical History Surgery/Hospitalization HX: Cholecystectomy, back surgery 1994, left hand repair, T&A Surgeries: No Respiratory: No Cardiac: Yes High Cholesterol, Hypertension Neurological: No Genitourinary: No Gastrointestinal: No Musculoskeletal: Yes (T7-T10 fracture) Endocrine: No HEENT: No Cancer: No Psychosocial: No Integumentary: No Blood Disorders: No Physical Exam Vital Signs Vital Signs - First Documented 06/25/21 10:53 Temp 35.9 Pulse 88 Resp 16 B/P (MAP) 174/105 (128) 155/100 (118) Pulse Ox 99 O2 Delivery Room Air Height, Weight, BMI Height: 6'0" Weight: 198lbs. oz. 89.763502zc; 24.00 BMI Method:Stated General Appearance: no apparent distress Eyes: left eye lid inflammation; bilateral eye PERRL, bilateral eye EOMI Mouth/Throat: dental tenderness, uvula swelling, other (left sided facial swelling extending to left sided eyelids and left side of forehead. Pt has exten sive dental caries and gingivitis with every tooth in his mouth. Poor dental hygeine. ) Neck: non-tender, full range of motion, supple, lymphadenopathy (R), lymphadenopathy (L) Cardiovascular: normal peripheral pulses, regular rate, rhythm Respiratory: chest non-tender, lungs clear, normal breath sounds, no respirato ry distress, no accessory muscle use Neurologic/Psychiatric: breaster II-XII nml as tested, no motor/sensory deficits, alert, oriented x 3 Skin: normal color Progress/Results/Core Measures Results/Orders Lab Results Laboratory Tests Test 06/25/21 11:20 Range/Units White Blood Count 12.6 H 4.3-11.0 10^3/uL Red Blood Count 5.30 4.30-5.52 10^6/uL Hemoglobin 14.7 13.3-17.7 g/dL Hematocrit 44 40-54 % Mean Corpuscular Volume 84 80-99 fL Mean Corpuscular Hemoglobin 28 25-34 pg Mean Corpuscular Hemoglobin Concent 33 32-36 g/dL Red Cell Distribution Width 15.0 H 10.0-14.5 % Platelet Count 305 130-400 10^3/uL Mean Platelet Volume 10.4 9.0-12.2 fL Immature Granulocyte % (Auto) 0 % Neutrophils (%) (Auto) 65 42-75 % Lymphocytes (%) (Auto) 24 12-44 % Monocytes (%) (Auto) 7 0-12 % Eosinophils (%) (Auto) 3 0-10 % Basophils (%) (Auto) 1 0-10 % Neutrophils # (Auto) 8.2 H 1.8-7.8 10^3/uL Lymphocytes # (Auto) 3.1 1.0-4.0 10^3/uL Monocytes # (Auto) 0.9 0.0-1.0 10^3/uL Eosinophils # (Auto) 0.4 H 0.0-0.3 10^3/uL Basophils # (Auto) 0.1 0.0-0.1 10^3/uL Immature Granulocyte # (Auto) 0.0 0.0-0.1 10^3/uL Neutrophils % (Manual) 66 % Lymphocytes % (Manual) 21 % Monocytes % (Manual) 7 % Eosinophils % (Manual) 5 % Basophils % (Manual) 1 % Band Neutrophils 0 % Sodium Level 139 135-145 MMOL/L Potassium Level 4.4 3.6-5.0 MMOL/L Chloride Level 104 98-107 MMOL/L Carbon Dioxide Level 23 21-32 MMOL/L Anion Gap 12 5-14 MMOL/L Blood Urea Nitrogen 9 7-18 MG/DL Creatinine 0.98 0.60-1.30 MG/DL Estimat Glomerular Filtration Rate 96 BUN/Creatinine Ratio 9 Glucose Level 99 70-105 MG/DL Calcium Level 8.9 8.5-10.1 MG/DL Corrected Calcium 8.5 8.5-10.1 MG/DL Total Bilirubin 0.2 0.1-1.0 MG/DL Aspartate Amino Transf (AST/SGOT) 14 5-34 U/L Alanine Aminotransferase (ALT/SGPT) 8 0-55 U/L Alkaline Phosphatase 90 40-136 U/L Total Protein 8.1 6.4-8.2 GM/DL Albumin 4.5 3.2-4.5 GM/DL My Orders Orders - PEE RUBIO MD Cbc With Automated Diff (06/25/21 11:05) Comprehensive Metabolic Panel (06/25/21 11:05) Blood Culture (06/25/21 11:05) Dexamethasone Injection (Decadron Inje (06/25/21 11:05) Clindamycin 600 Mg/50 Ml Ivpb (Cleocin P (06/25/21 11:07) Blood Culture (06/25/21 11:30) Manual Differential (06/25/21 11:20) Ketorolac Injection (Toradol Injection) (06/25/21 11:58) Ct Neck (Soft Tissue) W (06/25/21 12:21) Ct Head/Maxillofacial Wo (06/25/21 12:21) Iohexol Injection (Omnipaque 350 Mg/Ml 1 (06/25/21 12:30) Received Contrast (Hold Metformin- Contr (06/25/21 12:30) Sodium Chloride Flush (Catheter Flush Sy (06/25/21 12:30) Ns (Ivpb) (Sodium Chloride 0.9% Ivpb Bag (06/25/21 12:30) Oxycodone/Apap 5/325mg Tablet (Percocet (06/25/21 13:15) Morphine Injection (Morphine Injection (06/25/21 14:15) Medications Given in ED Current Medications Medications Dose Ordered Sig/Giovani Route Start Time Stop Time Status Last Admin Dose Admin Iohexol 75 ml ONCE ONCE IV 06/25/21 12:30 06/25/21 12:31 DC 06/25/21 12:46 75 ML Oxycodone/ Acetaminophen 2 tab ONCE ONCE PO 06/25/21 13:15 06/25/21 13:16 DC 06/25/21 13:31 2 TAB Sodium Chloride 10 ml NEEDED PRN IV 06/25/21 12:30 06/25/21 12:46 10 ML Sodium Chloride 100 ml ONCE ONCE IV 06/25/21 12:30 06/25/21 12:31 DC 06/25/21 12:46 100 ML Vital Signs/I&O 06/25/21 06/25/21 10:53 13:55 Temp 35.9 Pulse 88 95 Resp 16 24 B/P (MAP) 174/105 (128) 157/102 155/100 (118) Pulse Ox 99 98 O2 Delivery Room Air Room Air Blood Pressure Mean: 118 Progress Progress Note : Progress Note 1. EXTENSIVE DENTAL CARIES/ DENTAL ABSCESS/ FACIAL CELLULITIS: - CT FACE AND NECK: 1st premolar apical abscess, and extensive dental caries - CBC/ CMP: Elevated WBC of 12.6 with a left shift - Blood culture taken - Dexa 10mg im STAT - Clinda 600mg iv STAT - Toradol 15mg iv STAT for pain which was not helping much for the pain. Then gave Percocet 2 tabs. Pt is demanding 5 Tylenol PM tablets or continuous Morphine drip, and states that nothing else works. Ordered Morphine 2mg iv STAT. - Vitals stable. - Pt is angry and yelling at us because we do not have a dentist in the ER. Pt states he has a right to a dentist in the ER. Pt has been unhappy, and shouting at his , and nursing staff and myself the entire time he has been in the ER. Pt is insistent that a dentist needs to be called to the ER to pull his tooth out. Multiple attempts at de-escalating the situation by all ER staff is unsuccessful. Multiple attempts at explaining and educating the pt has also remained unsuccessful. - Will transfer to [facility] for observation and dental consult. Diagnostic Imaging Diagonstic Imaging: CT Plain Films/CT/US/NM/MRI: facial bones, other (neck) Comments [facility] [place] [place] NAME: [facility] REC#: [id number] PT STATUS: REG ER : 1975 PHYSICIAN: PEE RUBIO MD ADMIT DATE: 06/25/21/ER FS Draft Date of Exam:06/25/21 CT HEAD/MAXILLOFACIAL WO PROCEDURE: CT head and maxillofacial without contrast. TECHNIQUE: Multiple contiguous axial images were obtained through the head and facial bones without the use of intravenous contrast. Auto Exposure Controls were utilized during the CT exam to meet ALARA standards for radiation dose reduction. INDICATION: Facial infection with dental cellulitis. COMPARISON: CT head from 11/13/2018. FINDINGS: Head: No intracranial hyperdense hemorrhage or space-occupying mass. No hydrocephalus or midline shift. Hoang-white matter differentiation is well-preserved. Basilar cisterns are widely patent. Paranasal sinuses and mastoid air cells are clear. Face: Multifocal dental caries is present. The left maxillary 1st premolar has a large periapical lucency measuring 11 x 11 mm that also causes erosions along the medial cortex of the hard palate. There is no invasion through the cranial cortex or hard palate and therefore no communication with the nasal cavity. Moderate soft tissue swelling involving the left buccal region and left kavon-face. No soft tissue abscess is present. No post-septal inflammatory change within the orbits. IMPRESSION: 1. Apical/periodontal abscess is present centered around the root of the left maxillary 1st premolar. There is destruction of portions of the hard palate. 2. Extensive potential caries involves the majority of the remainder of the teeth. 3. Left facial cellulitis secondary to the left maxillary dental infection. No soft tissue abscess is appreciated. Dictated on workstation # [id number] Dict: 06/25/21 1252 Trans: 06/25/21 1259 CV [id number] Interpreted by: OLLIE DEL ROSARIO MD Electronically signed by: [facility] [place], [place] NAME: KASI [facility] REC#: [id number] PT STATUS: REG ER : 1975 PHYSICIAN: PEE RUBIO MD ADMIT DATE: 06/25/21/ER FS Draft Date of Exam:06/25/21 CT NECK (SOFT TISSUE) W PROCEDURE: CT neck soft tissue with contrast. TECHNIQUE: Multiple contiguous axial images were obtained through the neck after the administration of contrast. Auto Exposure Controls were utilized during the CT exam to meet ALARA standards for radiation dose reduction. INDICATION: Left facial cellulitis and swelling. COMPARISON: CT face performed concurrently. FINDINGS: Left maxillary periodontal disease is detailed on the CT face report. There is moderate soft tissue swelling in the left kavon-face, predominantly over the buccal surface of the maxilla and mandible. No soft tissue abscess is present. No retropharyngeal fluid collection. There is no inflammatory stranding within the upper mediastinal fat to suggest extension of infection. The thyroid, submandibular, and parotid glands are normal. Airway is widely patent. Lung apices are clear. No features of discitis-osteomyelitis within the cervical spine. IMPRESSION: 1. Left facial cellulitis due to left maxillary dental disease, detailed in the CT face report. 2. No soft tissue abscess within the neck. 3. No retropharyngeal fluid or extension of infection into the upper mediastinum. Dictated on workstation # [id number] Dict: 06/25/21 1257 Trans: 06/25/21 1308 [id number] Interpreted by: OLLIE DEL ROSARIO MD Electronically signed by: Departure Impression Primary Impression: Abscess of apex of dental root complicating chronic inflammation Additional Impressions: Dental caries Facial cellulitis Disposition: [facility] HOSP Condition: Stable Transfer Transfer Reason: Exceeds level of care Time Spoke to Accepting Phy: 11:45 Transfer Progress Notes Discussed with [facility] transfer, who consulted with dentist: Dr. Young, also later spoke to resident hospitalist Dr. Tse. We appreciate the time and effort that was spent by [facility] transfer team to find and confirm a dental consult. Dr Arnold accepted pt to [facility]. Method of Transfer: EMS Departure-Patient Inst. Referrals: JOYCELYN BLEDSOE (PCP/Family) Primary Care Physician PEE RUBIO MD Jun 25, 2021 11:29
[2021-06-25 11:36] LABS: BASOPHILS # (AUTO) 0.1 10^3/uL (0.0-0.1); BASOPHILS % (AUTO) 1 % (0-10); EOSINOPHILS # (AUTO) 0.4 10^3/uL (0.0-0.3); EOSINOPHILS % (AUTO) 3 % (0-10); HEMATOCRIT 44 % (40-54); HEMOGLOBIN 14.7 g/dL (13.3-17.7); LYMPHOCYTES # (AUTO) 3.1 10^3/uL (1.0-4.0); LYMPHOCYTES % (AUTO) 24 % (12-44); MEAN CORPUSCULAR HEMOGLOBIN 28 pg (25-34); MEAN CORPUSCULAR HGB CONC 33 g/dL (32-36); MEAN CORPUSCULAR VOLUME 84 fL (80-99); MEAN PLATELET VOLUME 10.4 fL (9.0-12.2); MONOCYTES # (AUTO) 0.9 10^3/uL (0.0-1.0); MONOCYTES % (AUTO) 7 % (0-12); NEUTROPHILS # (AUTO) 8.2 10^3/uL (1.8-7.8); NEUTROPHILS % (AUTO) 65 % (42-75); PLATELET COUNT 305 10^3/uL (130-400); WHITE BLOOD COUNT 12.6 10^3/uL (4.3-11.0)
[2021-06-25 11:57] LABS: BILIRUBIN,TOTAL 0.2 MG/DL (0.1-1.0); CALCIUM 8.9 MG/DL (8.5-10.1); CREATININE SERUM 0.98 MG/DL (0.60-1.30); POTASSIUM 4.4 MMOL/L (3.6-5.0); TOTAL PROTEIN 8.1 GM/DL (6.4-8.2)
[2021-06-25 11:58] LABS: ALBUMIN 4.5 GM/DL (3.2-4.5)
[2021-06-25] MEDS ORDERED: KETOROLAC 30 MG/ML VIAL IVP STA (11:58)
[2021-06-25 12:05] LABS: BAND NEUTROPHILS 0 %; BASOPHILS % (MANUAL) 1 %; EOSINOPHILS % (MANUAL) 5 %; LYMPHOCYTES % (MANUAL) 21 %; MONOCYTES % (MANUAL) 7 %; NEUTROPHILS % (MANUAL) 66 %
[2021-06-25] MEDS ORDERED: HOLD METFORMIN - RECEIVED CONTRAST 20 ML VIAL IV SCH (12:30)
[2021-06-25] MEDS ORDERED: IOHEXOL 350 MG/ML 100 ML (OMNIPAQUE 350) VIAL IV ONE (12:30)
[2021-06-25] MEDS ORDERED: CATHETER FLUSH 10 ML SYR IV PRN (12:30)
[2021-06-25] MEDS ORDERED: NS 100 ML (IVPB) BAG IV ONE (12:30)
--- NOTE | 2021-06-25 13:00 | Diagnostic Imaging Report ---
PROCEDURE: CT head and maxillofacial without contrast. TECHNIQUE: Multiple contiguous axial images were obtained through the head and facial bones without the use of intravenous contrast. Auto Exposure Controls were utilized during the CT exam to meet ALARA standards for radiation dose reduction. INDICATION: Facial infection with dental cellulitis. COMPARISON: CT head from 11/13/2018. FINDINGS: Head: No intracranial hyperdense hemorrhage or space-occupying mass. No hydrocephalus or midline shift. Hoang-white matter differentiation is well-preserved. Basilar cisterns are widely patent. Paranasal sinuses and mastoid air cells are clear. Face: Multifocal dental caries is present. The left maxillary 1st premolar has a large periapical lucency measuring 11 x 11 mm that also causes erosions along the medial cortex of the hard palate. There is no invasion through the cranial cortex or hard palate and therefore no communication with the nasal cavity. Moderate soft tissue swelling involving the left buccal region and left kavon-face. No soft tissue abscess is present. No post-septal inflammatory change within the orbits. IMPRESSION: 1. Apical/periodontal abscess is present centered around the root of the left maxillary 1st premolar. There is destruction of portions of the hard palate. 2. Extensive potential caries involves the majority of the remainder of the teeth. 3. Left facial cellulitis secondary to the left maxillary dental infection. No soft tissue abscess is appreciated. Dictated by: Dictated on workstation # [id number]
--- NOTE | 2021-06-25 13:09 | Diagnostic Imaging Report ---
PROCEDURE: CT neck soft tissue with contrast. TECHNIQUE: Multiple contiguous axial images were obtained through the neck after the administration of contrast. Auto Exposure Controls were utilized during the CT exam to meet ALARA standards for radiation dose reduction. INDICATION: Left facial cellulitis and swelling. COMPARISON: CT face performed concurrently. FINDINGS: Left maxillary periodontal disease is detailed on the CT face report. There is moderate soft tissue swelling in the left kavon-face, predominantly over the buccal surface of the maxilla and mandible. No soft tissue abscess is present. No retropharyngeal fluid collection. There is no inflammatory stranding within the upper mediastinal fat to suggest extension of infection. The thyroid, submandibular, and parotid glands are normal. Airway is widely patent. Lung apices are clear. No features of discitis-osteomyelitis within the cervical spine. IMPRESSION: 1. Left facial cellulitis due to left maxillary dental disease, detailed in the CT face report. 2. No soft tissue abscess within the neck. 3. No retropharyngeal fluid or extension of infection into the upper mediastinum. Dictated by: Dictated on workstation # [id number]
[2021-06-25] MEDS ORDERED: oxyCODONE/APAP 5/325MG (PERCOCET 5) TABLET PO ONE (13:15)
[2021-06-25] MEDS ORDERED: morphine INJ 10 MG/ML 1ML (SYR OR VIAL) IVP STA (14:15)
[2021-06-25 14:40] VITALS: BP 157/101
== END 2021-06-25 14:40 | disposition short-term general hospital (02) ==
LOC: EDUNIT# 10:46 → ER FS 10:47
DX: K04.7 Periapical abscess without sinus (principal); K02.9 Dental caries, unspecified; L03.211 Cellulitis of face; F17.210 Nicotine dependence, cigarettes, uncomplicated
CPT/HCPCS: 36415; 70450; 70486; 70491; 80053; 85007; 85027; 87040; Q9967

== ENCOUNTER 2021-08-31 00:48 | Emergency (ER) | payer OTHER ==
[~2021-08-31] VITALS: Ht 182.8 cm; Wt 81.3 kg
--- NOTE | 2021-08-31 01:14 | ED EENT ---
History of Present Illness General Chief Complaint: Dental Problems/Pain Stated Complaint: FACIAL SWELLING Nursing Triage Note: Patient states that he was seen by a dentist on Wednesday for a dental abscess. Patient was given PCN 500mg BID. Patient has been taking that since Wednesday with no improvement. Patient states that it has progressively gotten worse. Patient states that he can feel swelling in his throat. Patient also reports that he has been intubated for this same issue in the past. Patient does have significant swelling to the left side of his face. Source: patient History of Present Illness Date Seen by Provider: Aug 31, 2021 Time Seen by Provider: 01:13 Initial Comments 46-year-old male presenting with complaints of sudden swelling and increased pain to the left side of his face. He has been taking penicillin 500 mg twice a day since he was seen in the emergency department in [place] on Wednesday. He was worried that his airway would close off and he might need intubated as he had had that happen several years ago in [place]. He was concerned that he might be having swelling in his throat as well as the swelling going up his nose and eye. He has increased pain with trying to open his mouth. He is trying to get in with [facility] dental clinic but they do not have an opening for him until October 01. He has subjective fever and chills. He had a similar situation in May and was transferred to [facility] but they state that at that time it was a very bad experience. The never had surgery or any more specific treatment when you were transferred. Timing/Duration: abrupt (Facial swelling came on abruptly this evening) Severity: severe Location: facial, dental Prearrival Treatment: over the counter meds, prescription meds (Antibiotic) Modifying Factors: Improves With Antibiotics (Taking antibiotics but feels it has not really been helping); Worse With Lying Down Associated Symptoms: No change in hearing, No cough, No drooling, No ear drainage; facial pain/swelling (On the left side), fever (Subjective), malaise; No nasal congestion/drainage, No poor fluid intake, No poor solids intake, No sinus infection, No sore throat; tooth pain; No voice change Allergies and Home Medications Allergies Coded Allergies: No Known Drug Allergies (Unverified , 11/13/18) Patient Home Medication List Home Medication List Reviewed: Yes Clindamycin HCl (Clindamycin HCl) 300 Mg Capsule, 300 MG PO QID Prescribed by: YUNG SMITHRT on 08/31/21337 Hydrocodone/Acetaminophen (Hydrocodone-Acetamin 5-325 mg) 5 Mg-325 Mg Tablet, 1 TAB PO Q4H PRN for PAIN-SEVERE (8-10) Prescribed by: YUNG SMITHRT on 08/31/21337 Valacyclovir HCl (Valtrex) 1,000 Mg Tablet, 1,000 MG PO TID Prescribed by: SHANE PLASCENCIA on 11/13/1848 Discontinued Medications Azithromycin (Azithromycin) 250 Mg Tablet, 250 MG PO DAILY Prescribed by: SHANE PLASCENCIA on 11/13/1848 Cephalexin (Keflex) 500 Mg Capsule, 500 MG PO Q6H Prescribed by: RADHA CEBALLOS on 09/23/192224 Chlorhexidine Gluconate (Peridex) 473 Ml Mouthwash, 473 ML MM Q8H Prescribed by: OSCAR DEL VALLE on 09/21/192042 Clindamycin HCl (Clindamycin HCl) 150 Mg Capsule, 300 MG PO QID Prescribed by: OSCAR DEL VALLE on 09/21/192042 Dextran 70/Hypromellose/Pf (Artificial Tears Drops) 1 Each Droperette, 1 EACH OS UD Prescribed by: SHANE PLASCENCIA on 11/13/18101 Hydrocodone Bit/Acetaminophen (HYDROcodone/APAP 7.5/325 TAB) 1 Ea Tablet, 1 EA PO Q6H PRN for PAIN-SEVERE (8-10) Prescribed by: RADHA CEBALLOS on 09/23/192224 Hydrocodone/Acetaminophen (Hydrocodone-Acetamin 5-300 mg) 1 Each Tablet, 1 EACH PO Q6H Prescribed by: OSCAR DEL VALLE on 09/21/192042 Mineral Oil/Petrolatum,White (Refresh Lacri-Lube Ointment) 3.5 Gm Oint...g., 3.5 GM OS UD Prescribed by: SHANE PLASCENCIA on 11/13/1848 Prednisone (Prednisone) 20 Mg Tab, 60 MG PO DAILY Prescribed by: SHANE PLASCENCIA on 11/13/1848 Sulfamethoxazole/Trimethoprim (Bactrim Ds Tablet) 1 Each Tablet, 1 EACH PO BID Prescribed by: ARDHA CEBALLOS on 09/23/192224 Review of Systems Review of Systems Constitutional: chills, fever (Subjective) Eyes: Denies Blurred Vision, Denies Drainage, Denies Photophobia, Denies Vision Changes; Other (Swelling around the left eye) Ears: No Symptoms Reported Nose: no symptoms reported Mouth: denies clots; loose teeth, pain, swelling; denies bloody discharge, denies clear discharge, denies purulent discharge, denies serosanguinous discharge Throat: no symptoms reported Respiratory: no symptoms reported Cardiovascular: no symptoms reported Gastrointestinal: no symptoms reported Musculoskeletal: no symptoms reported Skin: no symptoms reported Neurological: Headache (Left face) Hematologic/Lymphatic: Denies Blood Clots, Denies Easy Bleeding, Denies Easy Bruising Past Loltrif-Ozyakj-Njvqaa Hx Patient Social History Tobacco Use?: Yes Tobacco type used: Cigarettes Smoking Status: Current Everyday Smoker Substance use?: Yes Substance type: Marijuana Alcohol Use?: No Pt feels they are or have been: No Immunizations Up To Date COVID19 Vaccine Flagsetter: [place] Seasonal Allergies Seasonal Allergies: No Past Medical History Surgery/Hospitalization HX: Cholecystectomy, back surgery 1994, left hand repair, T&A Surgeries: No Respiratory: No Cardiac: Yes High Cholesterol, Hypertension Neurological: No Genitourinary: No Gastrointestinal: No Musculoskeletal: Yes (T7-T10 fracture) Endocrine: No HEENT: No Cancer: No Psychosocial: No Integumentary: No Blood Disorders: No Physical Exam Vital Signs Vital Signs - First Documented 08/31/21 00:52 Temp 36.7 Pulse 74 Resp 18 B/P (MAP) 190/116 (140) Pulse Ox 98 O2 Delivery Room Air Height, Weight, BMI Height: 6'0" Weight: 198lbs. oz. [id number]; 24.00 BMI Method:Stated General Appearance: mild distress, other (Left facial swelling) Eyes: left eye other (Periorbital facial swelling ); bilateral eye PERRL, bilateral eye EOMI Nose: normal inspection Mouth/Throat: dental tenderness, maxillary swelling; No pharynx swelling, No tongue swollen, No tonsillar exudate; trismus Neck: tender lateral (Left-sided) Cardiovascular: normal peripheral pulses, regular rate, rhythm Respiratory: chest non-tender, lungs clear, normal breath sounds, no respiratory distress, no accessory muscle use Gastrointestinal: normal bowel sounds, non tender, soft, no pulsatile mass Neurologic/Psychiatric: alert, oriented x 3 Skin: normal color, warm/dry Progress/Results/Core Measures Results/Orders Lab Results Laboratory Tests Test 08/31/21 01:33 Range/Units White Blood Count 15.1 H 4.3-11.0 10^3/uL Red Blood Count 4.77 4.30-5.52 10^6/uL Hemoglobin 13.1 L 13.3-17.7 g/dL Hematocrit 40 40-54 % Mean Corpuscular Volume 83 80-99 fL Mean Corpuscular Hemoglobin 28 25-34 pg Mean Corpuscular Hemoglobin Concent 33 32-36 g/dL Red Cell Distribution Width 15.5 H 10.0-14.5 % Platelet Count 275 130-400 10^3/uL Mean Platelet Volume 9.9 9.0-12.2 fL Immature Granulocyte % (Auto) 0 % Neutrophils (%) (Auto) 59 42-75 % Lymphocytes (%) (Auto) 29 12-44 % Monocytes (%) (Auto) 9 0-12 % Eosinophils (%) (Auto) 2 0-10 % Basophils (%) (Auto) 1 0-10 % Neutrophils # (Auto) 8.9 H 1.8-7.8 10^3/uL Lymphocytes # (Auto) 4.3 H 1.0-4.0 10^3/uL Monocytes # (Auto) 1.4 H 0.0-1.0 10^3/uL Eosinophils # (Auto) 0.4 H 0.0-0.3 10^3/uL Basophils # (Auto) 0.1 0.0-0.1 10^3/uL Immature Granulocyte # (Auto) 0.0 0.0-0.1 10^3/uL Neutrophils % (Manual) 63 % Lymphocytes % (Manual) 29 % Monocytes % (Manual) 7 % Eosinophils % (Manual) 1 % Sodium Level 143 135-145 MMOL/L Potassium Level 4.1 3.6-5.0 MMOL/L Chloride Level 105 98-107 MMOL/L Carbon Dioxide Level 28 21-32 MMOL/L Anion Gap 10 5-14 MMOL/L Blood Urea Nitrogen 10 7-18 MG/DL Creatinine 1.05 0.60-1.30 MG/DL Estimat Glomerular Filtration Rate 88 BUN/Creatinine Ratio 10 Glucose Level 98 70-105 MG/DL Lactic Acid Level 1.84 0.50-2.00 MMOL/L Calcium Level 9.1 8.5-10.1 MG/DL Corrected Calcium 8.9 8.5-10.1 MG/DL Total Bilirubin < 0.2 0.1-1.0 MG/DL Aspartate Amino Transf (AST/SGOT) 10 5-34 U/L Alanine Aminotransferase (ALT/SGPT) 8 0-55 U/L Alkaline Phosphatase 74 40-136 U/L C-Reactive Protein 1.12 H <0.50 MG/DL Total Protein 7.2 6.4-8.2 GM/DL Albumin 4.3 3.2-4.5 GM/DL My Orders Orders - YUNG CAMARGO MD Cbc With Automated Diff (08/31/21:24) Comprehensive Metabolic Panel (08/31/21:) Blood Culture (08/31/21:24) Ed Iv/Invasive Line Start (08/31/21:24) Crp Fs (08/31/21:24) Lactic Acid Analyzer (08/31/21:24) Ns Iv 1000 Ml (Sodium Chloride 0.9%) (08/31/21 01:25) Dexamethasone Injection (Decadron Inje (08/31/21 01:25) Clindamycin 900 Mg/50 Ml Ivpb (Cleocin P (08/31/21:25) Ketorolac Injection (Toradol Injection) (08/31/21:25) Fentanyl Inj (Sublimaze Injection) (08/31/21 01:25) Ct Neck (Soft Tissue) W (08/31/21 01:26) Iohexol Injection (Omnipaque 350 Mg/Ml 1 (08/31/21 01:30) Received Contrast (Hold Metformin- Contr (08/31/21 01:30) Ns (Ivpb) (Sodium Chloride 0.9% Ivpb Bag (08/31/21 01:30) Manual Differential (08/31/21 01:33) Rx-Hydrocodone/Apap 5-325 Mg (Rx-Vicodin (08/31/21 04:00) Medications Given in ED Current Medications Medications Dose Ordered Sig/Giovani Route Start Time Stop Time Status Last Admin Dose Admin Acetaminophen/ Hydrocodone Bitart 1 ea Q6H PRN PO 08/31/21 04:00 08/31/21 04:02 DC 08/31/21 03:50 1 EA Iohexol 75 ml ONCE ONCE IV 08/31/21 01:30 08/31/21 01:31 DC 08/31/21 01:40 75 ML Sodium Chloride 100 ml ONCE ONCE IV 08/31/21 01:30 08/31/21 01:31 DC 08/31/21 01:40 100 ML Vital Signs/I&O 08/31/21 08/31/21 00:52 03:47 Temp 36.7 Pulse 74 66 Resp 18 16 B/P (MAP) 190/116 (140) 148/99 Pulse Ox 98 95 O2 Delivery Room Air Room Air 2 Blood Pressure Mean: 140 Progress Progress Note #1: Progress Note Check basic labs and CT of the soft tissues of the neck and face. Give IV fluid 1 L normal saline for hydration, Decadron 10 mg IV for swallowing. Fentanyl 50 mcg IV for pain Toradol 30 mg IV, Zofran 4 mg IV. Progress Note #2: Progress Note Lab does show elevated white blood cell count of 15.1 with a left shift. He has a negative lactic acid but he does have an elevated CRP. His CT scan was still pending but patient was resting in the room comfortably after medicines were initiated. Progress Note #3: Progress Note On recheck of the patient his facial swelling was improved and he was feeling a lot better. CT scan shows a abscess around tooth 10,11 and 12 on the buccal and lingual surface. This measures approximately 3 x 1.5 cm. Patient does have improved swelling to his face and has decreased swelling to his left eye. His pain is improved with treatment in the ED. Counseled on changing antibiotics to clindamycin as well as follow-up through the clinic for continued concerns. Diagnostic Imaging Diagonstic Imaging: CT Plain Films/CT/US/NM/MRI: facial bones Comments CT neck with IV contrast shows large left maxillary dental abscess involving both buccal and lingual surfaces of the maxilla in the region of teeth surfaces 10, 11, and 12. Abscess is approximately 3 cm x 1.5 cm. Study was read by Dr. Ayo Slater MD at 2:06 AM and faxed at 3:02 AM Reviewed: Reviewed [place] Study, Reviewed by Me Departure Impression Primary Impression: Dental abscess Additional Impressions: Pain due to dental caries Left facial swelling Disposition: 01 HOME, SELF-CARE Condition: Stable Departure-Patient Inst. Referrals: JOYCELYN BLEDSOE (PCP) Primary Care Physician [facility] Patient Instructions: Tooth Abscess ED, Tooth Decay ED, Dental Pain ED Add. Discharge Instructions: Stay well-hydrated and drink plenty of fluids. Stop the penicillin and start taking the clindamycin. For severe pain take the hydrocodone. Otherwise continue with ibuprofen to help with swelling and pain. Follow-up with the dentist as soon as possible If your symptoms are worsening or not improving over the next 2 to 3 days you will want to go to a hospital rather than just the emergency department here in [place] as you may need to be admitted for IV antibiotics or see an oral surgeon Keep your head elevated to help limit swelling and facial pain. All discharge instructions reviewed with patient and/or family. Voiced und erstanding. Scripts Hydrocodone/Acetaminophen (Hydrocodone-Acetamin 5-325 mg) 5 Mg-325 Mg Tablet 1 TAB PO Q4H PRN for PAIN-SEVERE (8-10) for 5 Days, #30 TAB 0 Refills Prov: YUNG CAMARGO MD 08/31/21 Clindamycin HCl (Clindamycin HCl) 300 Mg Capsule 300 MG PO QID for dental abscess for 10 Days, #40 CAP 0 Refills Prov: YUNG CAMARGO MD 08/31/21 YUNG CAMARGO MD Aug 31, 2021 01:13
[2021-08-31] MEDS ORDERED: NS IV 1000 ML 1,000 ML IV STA (01:25)
[2021-08-31] MEDS ORDERED: CLINDAMYCIN 900 MG/50 ML IVPB 50 ML IV STA (01:25)
[2021-08-31] MEDS ORDERED: KETOROLAC 30 MG/ML VIAL IVP STA (01:25)
[2021-08-31] MEDS ORDERED: fentaNYL INJ 100 MCG/2 ML AMP IVP STA (01:25)
[2021-08-31] MEDS ORDERED: NS 100 ML (IVPB) BAG IV ONE (01:30)
[2021-08-31] MEDS ORDERED: HOLD METFORMIN - RECEIVED CONTRAST 20 ML VIAL IV SCH (01:30)
[2021-08-31] MEDS ORDERED: IOHEXOL 350 MG/ML 100 ML (OMNIPAQUE 350) VIAL IV ONE (01:30)
[2021-08-31 01:37] LABS: BASOPHILS # (AUTO) 0.1 10^3/uL (0.0-0.1); BASOPHILS % (AUTO) 1 % (0-10); EOSINOPHILS # (AUTO) 0.4 10^3/uL (0.0-0.3); EOSINOPHILS % (AUTO) 2 % (0-10); HEMATOCRIT 40 % (40-54); HEMOGLOBIN 13.1 g/dL (13.3-17.7); LYMPHOCYTES # (AUTO) 4.3 10^3/uL (1.0-4.0); LYMPHOCYTES % (AUTO) 29 % (12-44); MEAN CORPUSCULAR HEMOGLOBIN 28 pg (25-34); MEAN CORPUSCULAR HGB CONC 33 g/dL (32-36); MEAN CORPUSCULAR VOLUME 83 fL (80-99); MEAN PLATELET VOLUME 9.9 fL (9.0-12.2); MONOCYTES # (AUTO) 1.4 10^3/uL (0.0-1.0); MONOCYTES % (AUTO) 9 % (0-12); NEUTROPHILS # (AUTO) 8.9 10^3/uL (1.8-7.8); NEUTROPHILS % (AUTO) 59 % (42-75); PLATELET COUNT 275 10^3/uL (130-400); WHITE BLOOD COUNT 15.1 10^3/uL (4.3-11.0)
[2021-08-31 01:56] LABS: ALANINE AMINOTRANSFERASE 8 U/L (0-55); ALBUMIN 4.3 GM/DL (3.2-4.5); ALKALINE PHOSPHATASE 74 U/L (40-136); BILIRUBIN,TOTAL < 0.2 MG/DL (0.1-1.0); BUN/CREATININE RATIO 10; CALCIUM 9.1 MG/DL (8.5-10.1); CARBON DIOXIDE 28 MMOL/L (21-32); CHLORIDE 105 MMOL/L (98-107); CREATININE SERUM 1.05 MG/DL (0.60-1.30); GFR ESTIMATED 88; GLUCOSE 98 MG/DL (70-105); POTASSIUM 4.1 MMOL/L (3.6-5.0); SODIUM 143 MMOL/L (135-145); TOTAL PROTEIN 7.2 GM/DL (6.4-8.2)
[2021-08-31 02:00] LABS: EOSINOPHILS % (MANUAL) 1 %; LYMPHOCYTES % (MANUAL) 29 %; MONOCYTES % (MANUAL) 7 %; NEUTROPHILS % (MANUAL) 63 %
[2021-08-31] MEDS ORDERED: CLIN-144 PO (03:38)
[2021-08-31] MEDS ORDERED: ACHD5005 PO (03:38)
[2021-08-31 03:47] VITALS: BP 148/99
--- NOTE | 2021-08-31 07:36 | Diagnostic Imaging Report ---
EXAMINATION: CT neck with intravenous contrast. TECHNIQUE: Multiple contiguous axial images were obtained through the neck after the uneventful administration of intravenous contrast. All CT scans use one or more of the following dose optimizing techniques: automated exposure control, MA and/or KvP adjustment based on patient size and exam type or iterative reconstruction. HISTORY: Facial pain and swelling COMPARISON: None available. FINDINGS: There is a left maxillary abscess centered in the region of teeth 10, 11 and 12 extending both into the buccal and lingula soft tissues. It measures 3.0 x 1.5 cm. There is extensive surrounding stranding. There is erosion of the maxilla centered in the same location as the soft tissue abscess. Scattered subcentimeter lymph nodes are seen in the neck. None are pathologically enlarged or abnormally enhancing. The muscles of the neck are normal. Vessels of the neck demonstrate normal course and caliber. Fascial planes are preserved and the deep spaces of the neck are normal. The visualized airway is widely patent. The base of the skull and the temporal bones are normal. Limited views of the brain including the cerebellum and brainstem are normal. The limited view of the [place] of [place] is unremarkable. The visualized portions of the orbits are normal. There are no suspicious osseus lesions. IMPRESSION: 1. Left maxillary abscess centered in the regions of teeth 10, 11 and 12 involving both the buccal and lingual soft tissues with erosion of the maxilla in keeping with osteomyelitis. There is no significant disagreement with the preliminary report. Dictated by: Dictated on workstation # [id number]
== END 2021-08-31 03:52 | disposition home or self-care (01) ==
LOC: EDUNIT# 00:48 → ER FS 00:51
DX: K04.7 Periapical abscess without sinus (principal); K02.9 Dental caries, unspecified; D72.829 Elevated white blood cell count, unspecified; R79.82 Elevated C-reactive protein (CRP); F17.210 Nicotine dependence, cigarettes, uncomplicated
CPT/HCPCS: 36415; 70491; 80053; 83605; 85007; 85027; 86141; 87040; Q9967

== ENCOUNTER 2022-03-29 00:03 | Emergency (ER) | payer OTHER ==
[~2022-03-29] VITALS: Ht 185.4 cm; Wt 78.4 kg
[~2022-03-29 00:03] MED LIST changes: +ACHD5005 PO; +CLIN-144 PO
--- NOTE | 2022-03-29 00:08 | ED Lower Extremity ---
General Stated Complaint: RT ANKLE INJURY History of Present Illness Date Seen by Provider: Mar 29, 2022 Time Seen by Provider: 12:07 Initial Comments 46-year-old male is here with complaints of right ankle swelling and pain after he rolled his ankle going down the steps of his porch. This occurred around 8 PM and the pain was and swelling was worsening so he came to the ER. Patient is unable to bear weight on it. Denies sensory loss, LOC, head strike. Allergies and Home Medications Allergies Coded Allergies: No Known Drug Allergies (Unverified , 11/13/18) Patient Home Medication List Home Medication List Reviewed: Yes Aspirin (Aspirin EC) 81 Mg Tablet.dr, 81 MG PO DAILY, (Reported) Entered as Reported by: JAH DENG on 03/29/2220 Last Action: New Order Buspirone HCl (Buspirone HCl) 10 Mg Tablet, 10 MG PO BID, (Reported) Entered as Reported by: JAH DENG on 03/29/2220 Last Action: New Order Duloxetine HCl (Duloxetine HCl) 60 Mg Capsule.dr, 60 MG PO DAILY, (Reported) Entered as Reported by: JAH DENG on 03/29/2220 Last Action: New Order Lisinopril/Hydrochlorothiazide (Lisinopril-Hctz 20-12.5 mg Tab) 20 Mg-12.5 Mg Tablet, 2 EACH PO DAILY, (Reported) Entered as Reported by: JAH DENG on 03/29/2220 Last Action: New Order Potassium Chloride (Potassium Chloride) 20 Meq Tablet.er, 10 MEQ PO DAILY, (Reported) Entered as Reported by: JAH DNEG on 03/29/2220 Last Action: New Order Discontinued Medications Clindamycin HCl (Clindamycin HCl) 300 Mg Capsule, 300 MG PO QID Discontinued Reason: Referral/FU Appt-Addtl Prescribed by: YUNG CAMARGO on 08/31/21337 Last Action: Discontinued Hydrocodone/Acetaminophen (Hydrocodone-Acetamin 5-325 mg) 5 Mg-325 Mg Tablet, 1 TAB PO Q4H PRN for PAIN-SEVERE (8-10) Discontinued Reason: Referral/FU Appt-Addtl Prescribed by: YUNG CAMARGO on 08/31/21337 Last Action: Discontinued Valacyclovir HCl (Valtrex) 1,000 Mg Tablet, 1,000 MG PO TID Discontinued Reason: Referral/FU Appt-Addtl Prescribed by: SHANE PLASCENCIA on 11/13/1848 Last Action: Discontinued Review of Systems Constitutional: no symptoms reported EENTM: no symptoms reported Respiratory: no symptoms reported Cardiovascular: no symptoms reported Gastrointestinal: no symptoms reported Genitourinary: no symptoms reported Musculoskeletal: joint pain, joint swelling Skin: no symptoms reported Psychiatric/Neurological: No Symptoms Reported Past Ueibizm-Euxiyt-Mwygah Hx Seasonal Allergies Seasonal Allergies: No Past Medical History Surgery/Hospitalization HX: Cholecystectomy, back surgery 1994, left hand repair, T&A Surgeries: No Respiratory: No Cardiac: Yes High Cholesterol, Hypertension Neurological: No Genitourinary: No Gastrointestinal: No Musculoskeletal: Yes (T7-T10 fracture) Endocrine: No HEENT: No Cancer: No Psychosocial: No Integumentary: No Blood Disorders: No Physical Exam Vital Signs Capillary Refill : Height, Weight, BMI Height: 6'0" Weight: 198lbs. oz. 89.447906zu; 24.00 BMI Method:Stated General Appearance: WD/WN, no apparent distress HEENT: PERRL/EOMI Neck: non-tender, full range of motion, supple, normal inspection Back: normal inspection, no vertebral tenderness Ankles: right ankle limited range of motion, right ankle pain, right ankle soft tissue tenderness, right ankle swelling Feet: right foot non-tender, right foot normal inspection, right foot normal range of motion, right foot no evidence of injury Neurologic/Tendon: normal sensation, normal motor functions, normal tendon functions Neurologic/Psychiatric: alert, normal mood/affect, oriented x 3 Skin: normal color Progress/Results/Core Measures Results/Orders My Orders Orders - PEE RUBIO MD Ankle 3 View Right (03/29/22 00:07) Progress Progress Note : Progress Note 1. 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 Departure Impression Primary Impression: Right ankle sprain Qualified Codes: S93.401A - Sprain of unspecified ligament of right ankle, initial encounter Disposition: 01 HOME, SELF-CARE Condition: Stable Departure-Patient Inst. Referrals: JOYCELYN BLEDSOE (PCP) Primary Care Physician HILLARY BOLTON MD Patient Instructions: Ankle Sprain ED, Walking Boot Add. 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 PEE RUBIO MD Mar 29, 2022 00:08
[2022-03-29] MEDS ORDERED: LISI1TAB46 PO (00:21)
[2022-03-29] MEDS ORDERED: POTA-51 PO (00:21)
[2022-03-29] MEDS ORDERED: BUSP10TA95 PO (00:21)
[2022-03-29] MEDS ORDERED: ASPI-1238 PO (00:21)
[2022-03-29] MEDS ORDERED: DULO60CA59 PO (00:21)
[2022-03-29] MEDS ORDERED: KETOROLAC 30 MG/ML VIAL IM STA (00:33)
[2022-03-29] MEDS ORDERED: KETOROLAC 30 MG/ML VIAL ONE (00:38)
[2022-03-29 00:49] VITALS: BP 106/76
--- NOTE | 2022-03-29 07:50 | Diagnostic Imaging Report ---
CLINICAL HISTORY: Right ankle pain. Rolled right ankle. COMPARISON: None. TECHNIQUE: 3 views of the right ankle. FINDINGS: There is no acute fracture or dislocation of the right ankle. Alignment is anatomic. The imaged joint spaces are preserved. There is swelling along the lateral malleolus of the right ankle. IMPRESSION: 1. No acute fracture or dislocation in the right ankle. 2. Soft tissue edema overlying the lateral malleolus. Dictated by: Dictated on workstation # [id number]
== END 2022-03-29 00:49 | disposition home or self-care (01) ==
LOC: EDUNIT# 00:03 → ER FS 00:05
DX: S93.401A Sprain of unspecified ligament of right ankle, initial encounter (principal); X50.1XXA Overexertion from prolonged static or awkward postures, initial encounter; Y92.89 Other specified places as the place of occurrence of the external cause
CPT/HCPCS: 73610

== ENCOUNTER 2022-03-31 01:07 | Emergency (ER) | payer OTHER ==
[~2022-03-31 01:07] MED LIST changes: +ASPI-1238 PO; +BUSP10TA95 PO; +DULO60CA59 PO; +LISI1TAB46 PO; +POTA-51 PO
[2022-03-31] MEDS ORDERED: HYDROcodone/APAP 5 MG/325 MG (LORTAB) TAB PO ONE (01:30)
[2022-03-31 01:54] VITALS: BP 119/71
--- NOTE | 2022-03-31 02:07 | ED Lower Extremity ---
General Chief Complaint: Lower Extremity Stated Complaint: RIGHT FOOT SWOLLEN PT IN LOT OF PAIN Nursing Triage Note: Pt fell Wednesday night and was seen in the ED for right ankle pain. Pt was told he had a sprain and was told to wear a walking boot. Pt presents tonight stating the pain isn't any better. Source: patient Exam Limitations: no limitations History of Present Illness Date Seen by Provider: Mar 31, 2022 Time Seen by Provider: 00:15 Initial Comments Patient is a 46-year-old disabled who was evaluated in the emergency department 2 nights ago for right ankle sprain. He was discharged home with a walker and an orthopedic boot. He reports increased pain when he attempts to weight-bear on the ball of his heel. States the pain is now much better with standing and walking. Patient is taking ibuprofen with limited relief. No other new symptoms or complaints. Onset: other (2 days ago) Severity: severe Pain/Injury Location: left ankle Method of Injury: other Modifying Factors: Improves With Other Allergies and Home Medications Allergies Coded Allergies: No Known Drug Allergies (Unverified , 11/13/18) Patient Home Medication List Home Medication List Reviewed: Yes Aspirin (Aspirin EC) 81 Mg Tablet.dr, 81 MG PO DAILY, (Reported) Entered as Reported by: JAH DENG on 03/29/2220 Buspirone HCl (Buspirone HCl) 10 Mg Tablet, 10 MG PO BID, (Reported) Entered as Reported by: JAH DENG on 03/29/2220 Duloxetine HCl (Duloxetine HCl) 60 Mg Capsule.dr, 60 MG PO DAILY, (Reported) Entered as Reported by: JAH DENG on 03/29/2220 Lisinopril/Hydrochlorothiazide (Lisinopril-Hctz 20-12.5 mg Tab) 20 Mg-12.5 Mg Tablet, 2 EACH PO DAILY, (Reported) Entered as Reported by: JAH DENG on 03/29/2220 Potassium Chloride (Potassium Chloride) 20 Meq Tablet.er, 10 MEQ PO DAILY, (Reported) Entered as Reported by: JAH DENG on 03/29/2220 Discontinued Medications Clindamycin HCl (Clindamycin HCl) 300 Mg Capsule, 300 MG PO QID Discontinued Reason: Referral/FU Appt-Addtl Prescribed by: YUNG CAMARGO on 08/31/21 0338 Hydrocodone/Acetaminophen (Hydrocodone-Acetamin 5-325 mg) 5 Mg-325 Mg Tablet, 1 TAB PO Q4H PRN for PAIN-SEVERE (8-10) Discontinued Reason: Referral/FU Appt-Addtl Prescribed by: YUNG SMITHRT on 08/31/21337 Valacyclovir HCl (Valtrex) 1,000 Mg Tablet, 1,000 MG PO TID Discontinued Reason: Referral/FU Appt-Addtl Prescribed by: SHANE PLASCENCIA on 11/13/18 0049 Review of Systems Constitutional: see HPI Musculoskeletal: joint pain Past Jrabers-Iatdut-Ubmvzv Hx Patient Social History Tobacco Use?: Yes Substance use?: No Alcohol Use?: No Immunizations Up To Date First/Initial COVID19 Vaccinat: Date? Second COVID19 Vaccination William: Date? Third COVID19 Vaccination Date: Date? Seasonal Allergies Seasonal Allergies: No Past Medical History Surgery/Hospitalization HX: Cholecystectomy, back surgery 1994, left hand repair X 3, T&A Surgeries: No Respiratory: No Cardiac: Yes High Cholesterol, Hypertension Neurological: No Genitourinary: No Gastrointestinal: No Musculoskeletal: Yes (T7-T10 fracture) Endocrine: No HEENT: No Cancer: No Psychosocial: No Integumentary: No Blood Disorders: No Physical Exam Vital Signs Vital Signs - First Documented 03/31/22 01:14 Pulse 88 Resp 20 B/P (MAP) 119/71 (87) Pulse Ox 97 O2 Delivery Room Air Capillary Refill : Less Than 3 Seconds Height, Weight, BMI Height: 6'0" Weight: 198lbs. oz. 89.170372ld; 22.00 BMI Method:Stated General Appearance: WD/WN, no apparent distress HEENT: PERRL/EOMI Ankles: right ankle ecchymosis, right ankle pain, right ankle soft tissue tenderness, right ankle swelling Neurologic/Psychiatric: alert, normal mood/affect Progress/Results/Core Measures Results/Orders My Orders Orders - OSCAR DEL VALLE DO Foot 3 View Right (03/31/22 01:18) Hydrocodone/Apap 5/325 Tablet (Lortab 5 (03/31/22 01:30) Medications Given in ED Current Medications Medications Dose Ordered Sig/Giovani Route Start Time Stop Time Status Last Admin Dose Admin Acetaminophen/ Hydrocodone Bitart 2 ea ONCE ONCE PO 03/31/22 01:30 03/31/22 01:31 DC 03/31/22 01:25 2 EA Vital Signs/I&O 03/31/22 03/31/22 01:14 01:54 Pulse 88 88 Resp 20 20 B/P (MAP) 119/71 (87) 119/71 Pulse Ox 97 97 O2 Delivery Room Air Room Air Blood Pressure Mean: 87 Departure Communication (Admissions) X-ray right foot/right ankle: No obvious displaced fracture on radiology review and on ED provider review. Right ankle pain secondary to sprain exacerbated by patient weightbearing and not elevating ankle rest. Pain addressed to the emergency department. Home discharge instructions reviewed with patient's. He is instructed to remain non weightbearing and to follow-up with local PCP, and require additional imaging to rule out occult fracture should his pain persist. Patient verbalizes understanding agreement with discharge instructions prior to departure Impression Primary Impression: Right ankle injury Disposition: HOME, SELF-CARE Condition: Stable Departure-Patient Inst. Decision time for Depature: 02:08 Referrals: JOYCELYN BLEDSOE (PCP/Family) Primary Care Physician Patient Instructions: Sprain (DC) Add. Discharge Instructions: Please keep leg elevated above the level of heart at rest. Do not place any weight on your right foot. Take ibuprofen and/or Tylenol for pain and tramadol as needed for additional relief. Follow-up with your PCP in 3 to 5 days for further evaluation. All discharge instructions reviewed with patient and/or family. Voiced understanding. Scripts Tramadol HCl (Tramadol HCl) 50 Mg Tablet 50 MG PO Q6H PRN for PAIN for 3 Days, #12 TAB 0 Refills Prov: OSCAR DEL VALLE DO 03/31/22 OSCAR DEL VALLE DO Mar 31, 2022 02:07
[2022-03-31] MEDS ORDERED: TRM50T PO (02:09)
--- NOTE | 2022-03-31 06:35 | Diagnostic Imaging Report ---
EXAMINATION: Right foot radiographs, 3 views. COMPARISON: None. HISTORY: 46-year-old male, right foot pain. FINDINGS: There is normal variant congenital fusion of the fifth digit middle and distal phalanges. There is mild degenerative type calcaneal enthesopathy. There is dorsal soft tissue swelling of the foot most notable at the level of the metatarsals. This does extend proximally. There is also soft tissue swelling in the region of the ankle. There is also a tibiotalar joint effusion. There are small osteophytes arising from the distal tibia anteriorly. There is no tibiotalar joint space loss. The additional joint spaces also appear well-preserved. There is no cortical or aggressive bone destruction. There is no acute fracture. IMPRESSION: 1. Nonspecific soft tissue swelling at the level of the foot and ankle. 2. No identified radiopaque foreign body. 3. Tibiotalar joint effusion. 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 4. No acute osseous abnormality. Dictated by: Dictated on workstation # [id number]
== END 2022-03-31 02:12 | disposition home or self-care (01) ==
LOC: EDUNIT# 01:07 → ER FS 01:12
DX: S93.401D Sprain of unspecified ligament of right ankle, subsequent encounter (principal); Z28.310 Unvaccinated for COVID-19; X58.XXXD Exposure to other specified factors, subsequent encounter
CPT/HCPCS: 73630